=== PATIENT | male | born 1970 | race Caucasian/White ===

== ENCOUNTER 2018-02-22 13:07 | Emergency (ER) | payer BC ==
[2018-02-22 14:08] LABS: #Basophils 0.1 thou/uL (0.0-0.2); #Eosinphils 0.4 thou/uL (0.0-0.7); #Lymphocytes 1.7 thou/uL (1.20-3.40); #Monocytes 0.4 thou/uL (0.11-0.59); #Neutrophils 1.8 thou/uL (1.40-6.50); %Basophils 2.8 % (0.0-1.0); %Eosinophils 8.2 % (0.0-10.0); %Lymphocytes 38.8 % (21.0-51.0); %Monocytes 8.5 % (0.0-10.0); %Neutrophils 41.7 % (42.0-75.0); Hemoglobin 14.2 g/dL (14.0-18.0); Mean Corpuscular Hemoglobin 28.5 pg (27.0-31.0); Mean Corpuscular Volume 79.2 fL (78.0-98.0); Mean Platelet Volume 6.4 fL (7.4-10.4); Platelet Count 287 thou/uL (130-400); RBC Distribution Width 10.7 % (11.5-14.5); Red Blood Cell (RBC) Count 4.98 mill/uL (4.70-6.10); White Blood Cell (WBC) Count 4.4 thou/uL (4.8-10.8)
[2018-02-22 14:12] LABS: MDiff Complete? YES
[2018-02-22 14:26] LABS: ALT (SGPT) 20 U/L (8-55); AST (SGOT) 20 U/L (5-34); Albumin 4.7 g/dL (3.5-5.0); Alkaline Phosphatase 65 U/L (40-150); Anion Gap 17 mmol/L (10-20); BUN (Urea Nitrogen) 15 mg/dL (8.9-20.6); Bilirubin, Total 0.8 mg/dL (0.2-1.2); Calc. Creatinine Clearance 0 mL/min (70-130); Calcium 9.8 mg/dL (7.8-10.44); Carbon Dioxide 23 mmol/L (22-29); Chloride 106 mmol/L (98-107); Estimated GFR-MDRD 68; Globulin 3.4 g/dL (2.4-3.5); Glucose 109 mg/dL (70-105); Potassium 3.6 mmol/L (3.5-5.1); Protein, Total 8.1 g/dL (6.0-8.3); Sodium 142 mmol/L (136-145)
[2018-02-22 14:29] LABS: CKMB 1.1 ng/mL (0-6.6); Troponin I Less than 0.010 ng/mL (< 0.028)
[2018-02-22] MEDS ORDERED: Potassium Chloride 20 MEQ TAB ONE (14:39)
== END 2018-02-22 14:47 | disposition home or self-care (01) ==
LOC: BURERS 13:07
DX: R00.2 Palpitations (principal); K21.9 Gastro-esophageal reflux disease without esophagitis; E03.9 Hypothyroidism, unspecified; Z79.899 Other long term (current) drug therapy; Z79.82 Long term (current) use of aspirin
CPT/HCPCS: 80053; 82553; 83735; 83880; 84443; 84484; 85025; 93005

== ENCOUNTER 2020-03-08 19:38 | Emergency (ER) | payer BC ==
[~2020-03-08 19:38] MED LIST: Iopamidol 370 76% 100 ML VIAL ONE
[2020-03-08 20:00] LABS: #Basophils 0.1 thou/uL (0.0-0.2); #Eosinphils 0.5 thou/uL (0.0-0.7); #Lymphocytes 2.4 thou/uL (1.20-3.40); #Monocytes 0.6 thou/uL (0.11-0.59); #Neutrophils 2.2 thou/uL (1.40-6.50); %Eosinophils 8.8 % (0.0-10.0); %Lymphocytes 41.7 % (21.0-51.0); %Monocytes 9.4 % (0.0-10.0); %Neutrophils 38.1 % (42.0-75.0); Hemoglobin 13.1 g/dL (14.0-18.0); Mean Corpuscular HGB CONC 30.9 g/dL (32.0-36.0); Mean Corpuscular Hemoglobin 28.4 pg (27.0-31.0); Mean Corpuscular Volume 91.7 fL (78.0-98.0); Mean Platelet Volume 8.3 fL (7.4-10.4); Platelet Count 267 thou/uL (130-400); RBC Distribution Width 11.5 % (11.5-14.5); Red Blood Cell (RBC) Count 4.62 mill/uL (4.70-6.10); White Blood Cell (WBC) Count 5.8 thou/uL (4.8-10.8)
[2020-03-08 20:07] LABS: INR-International Normal Ratio 0.9; PTT 30.8 sec (22.9-36.1); Prothrombin Time 12.1 sec (12.0-14.7)
[2020-03-08 20:16] LABS: ALT (SGPT) 31 U/L (8-55); AST (SGOT) 21 U/L (5-34); Albumin 4.4 g/dL (3.5-5.0); Alkaline Phosphatase 68 U/L (40-110); Anion Gap 13 mmol/L (10-20); BUN (Urea Nitrogen) 15 mg/dL (8.9-20.6); Bilirubin, Total 0.2 mg/dL (0.2-1.2); Calc. Creatinine Clearance 0 mL/min (70-130); Calcium 9.2 mg/dL (7.8-10.44); Carbon Dioxide 26 mmol/L (22-29); Chloride 105 mmol/L (98-107); Estimated GFR-MDRD 63; Globulin 3.1 g/dL (2.4-3.5); Glucose 106 mg/dL (70-105); Potassium 3.7 mmol/L (3.5-5.1); Protein, Total 7.5 g/dL (6.0-8.3); Sodium 140 mmol/L (136-145)
--- NOTE | 2020-03-08 20:41 | CT ---
CT OF THE BRAIN WITHOUT CONTRAST: 03/08/20 Comparison is made with the prior study dated 05/04/15. There has been no adverse interval change. The ventricles are normal in size with no shift. No intrac ranial bleeding, mass or sign of acute stroke was found. An incidental finding is some mucosal thicke ramírez and maybe even a short air fluid level in the left maxillary sinus. The other sinuses and mastoi d air cells are clear. IMPRESSION: 1. No acute intracranial findings. 2. Left maxillary sinusitis. Preliminary report called to Dr. Dennis at 2001 on 03/08/20. POS: HOME
--- NOTE | 2020-03-08 20:41 | CT ---
CTA of the head with IV contrast and 3-D reformatted imaging. CTA of the neck with IV contrast and 3-D reformatted imaging. INDICATION: Left-sided weakness COMPARISON: Noncontrast CT the brain dated March 08, 2020 and MR the brain with and without contrast da bri August 14, 2015 FINDINGS: CTA OF THE HEAD WITH CONTRAST: CTA OF THE BRAIN: Right ICA: There is a dissection involving the distal right cervical ICA that completely occludes at the level of the right skull base with re-opacification of the limits the level of the petrous segment. The remaining course of the intracranial right ICA is patent. Right MCA: Patent. Right JUDI: Patent. ACOM: Patent. Left ICA: Patent. Left MCA: Patent. Left JUDI: Patent. PCOMs: The right CAN MARKER has a origin. Vertebral arteries: Patent. Basilar Artery: Patent. software engineer sales: The right CAN MARKER has a origin. Both software engineer sales are patent. Incidentals: No abnormal enhancement CTA OF THE NECK WITH CONTRAST: Right CCA: Patent. Right ICA: There is complete occlusion of the distal right ICA due to a dissection flap. The flap or iginates at approximately the C1 vertebral level and extends through the right skull base. There is reconstitution of flow within the petrous segment of the right ICA. Right Subclavian: Patent. Right Vertebral Artery: Patent. Left CCA: Patent. Left ICA: Patent. Left Subclavian: Patent. Left Vertebral Artery: Patent. Aerodigestive tract: Clear. Parotids/Submandibular/Thyroid glands: Normal. Lymph nodes: No pathologically enlarged lymph nodes. Lung Apices: Clear. Bones: No acute osseous abnormality. Incidentals: None. IMPRESSION: 1. 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 There is reconstitution of flow at the level the right petrous segment of the internal carotid artery. 2. Findings called to Dr. Rodriguez at 8:39 PM on March 08, 2020
[2020-03-08] MEDS ORDERED: Aspirin Chewable 81 MG TAB ONE (20:53)
[2020-03-08] MEDS ORDERED: Heparin 25,000 units/D5W 500 ML ONE (21:11)
== END 2020-03-08 23:03 | disposition short-term general hospital (02) ==
LOC: BURERS 19:38
DX: I77.71 Dissection of carotid artery (principal); K21.9 Gastro-esophageal reflux disease without esophagitis; E03.9 Hypothyroidism, unspecified; Z79.899 Other long term (current) drug therapy
CPT/HCPCS: 70450; 70496; 70498; 80053; 85025; 85610; 85730; 93005; 96365; 96366; J1644; Q9967

== ENCOUNTER 2020-03-20 15:37 | Emergency (ER) | payer BC ==
[2020-03-20 16:10] LABS: #Basophils 0.1 thou/uL (0.0-0.2); #Eosinphils 0.4 thou/uL (0.0-0.7); #Lymphocytes 1.9 thou/uL (1.20-3.40); #Monocytes 0.4 thou/uL (0.11-0.59); #Neutrophils 3.3 thou/uL (1.40-6.50); %Basophils 1.6 % (0.0-1.0); %Eosinophils 5.7 % (0.0-10.0); %Lymphocytes 31.2 % (21.0-51.0); %Monocytes 7.2 % (0.0-10.0); %Neutrophils 54.3 % (42.0-75.0); Hemoglobin 13.5 g/dL (14.0-18.0); Mean Corpuscular HGB CONC 31.5 g/dL (32.0-36.0); Mean Corpuscular Hemoglobin 28.4 pg (27.0-31.0); Platelet Count 327 thou/uL (130-400); RBC Distribution Width 11.2 % (11.5-14.5); Red Blood Cell (RBC) Count 4.75 mill/uL (4.70-6.10); White Blood Cell (WBC) Count 6.2 thou/uL (4.8-10.8)
[2020-03-20 16:16] LABS: INR-International Normal Ratio 1.2; Prothrombin Time 15.3 sec (12.0-14.7)
[2020-03-20 16:26] LABS: ALT (SGPT) 26 U/L (8-55); AST (SGOT) 16 U/L (5-34); Albumin 4.3 g/dL (3.5-5.0); Alkaline Phosphatase 70 U/L (40-110); Anion Gap 14 mmol/L (10-20); BUN (Urea Nitrogen) 16 mg/dL (8.9-20.6); Bilirubin, Total 0.4 mg/dL (0.2-1.2); CK (CPK) 57 U/L (30-200); Calc. Creatinine Clearance 0 mL/min (70-130); Calcium 9.3 mg/dL (7.8-10.44); Carbon Dioxide 27 mmol/L (22-29); Chloride 100 mmol/L (98-107); Estimated GFR-MDRD 71; Globulin 3.4 g/dL (2.4-3.5); Glucose 139 mg/dL (70-105); Potassium 3.9 mmol/L (3.5-5.1); Protein, Total 7.7 g/dL (6.0-8.3); Sodium 137 mmol/L (136-145)
--- NOTE | 2020-03-20 16:57 | CT ---
CT BRAIN NONCONTRAST: DATE: 03/20/2020 HISTORY: 49-year-old male with acute stroke: Left lower extremity weakness. Dr. Cash discussed the findings by telephone with Dr. Buchanan at 4:52 PM 03/20/2020 COMPARISON: 03/08/2020 FINDINGS: There is new finding of small patchy low attenuation at the genu of the right internal capsule, encro aching upon the anterior and posterior limbs, and on the globus pallidus. There has been no other interval change. No acute intra-axial or extra-axial hemorrhage. No mass effect or midline shift. Ventricles are normal in size and configuration. No extra-axial fluid collection. Calvarium is intact. IMPRESSION: Evidence for acute or subacute lacunar infarction of right internal capsule and portion of right basa l ganglia.
--- NOTE | 2020-03-20 17:42 | CT ---
EXAM: CTA Angio Head W WO Con W Perf PROVIDED CLINICAL HISTORY: Left lower extremity weakness. History of right internal carotid artery dissection. Patient has new l acunar infarction in the right internal capsule/right basal ganglia. COMPARISON: 03/08/2020 FINDINGS: The origins of the great vessels are patent. The left subclavian artery is patent. Portion of the rig ht subclavian artery is obscured by dense contrast within adjacent venous structures. Bilateral common carotid arteries are patent The left internal carotid and external carotid arteries are patent. As noted on the prior exam, there is a dissection involving the right internal carotid artery which b egins at the C1-2 level with critical narrowing and string sign involving the distal right internal carotid artery to the level of the petrous portion of the right ICA. The petrous portion of the right ICA was normal in caliber on the prior exam. However, the petrous portion of the ICA has now decreased in caliber with slight decrease in caliber of the more proximal cavernous segment of the ri ght internal carotid artery as well. 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 This pseudoaneurysm measures approximately 6 mm in diameter. The bilateral vertebral arteries are patent. There are -type origins of each posterior cerebral artery which are patent. The bilateral middle cerebral and anterior cerebral arteries are patent. Mucosal thickening in each maxillary antrum is again seen. No other interval change. IMPRESSION: 1. Short segment dissection again seen involving the distal cervical right internal carotid artery wh ich begins at the C1-2 level and extends to the petrous segment of the right internal carotid artery. A string sign with very severe narrowing is present similar to prior exam; however, there has been interval decrease in caliber of the petrous portion of the right ICA compared to prior exam. 2. 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 3. Above findings discussed with Dr. Buchanan in the emergency department on 03/20/2020 at 1731 hours.
--- NOTE | 2020-03-20 19:09 | RAD ---
PORTABLE CHEST: DATE: 03-20-2020 An AP portable film at 1719 is compared with an 04-16-15 study. FINDINGS: The heart is normal in size and the lungs are clear. No infiltrate or effusion is seen. There is no v ascular congestion or edema. IMPRESSION: No acute thoracic finding. POS: HOME
== END 2020-03-20 19:30 | disposition short-term general hospital (02) ==
LOC: BURERS 15:37
DX: I63.231 Cerebral infarction due to unspecified occlusion or stenosis of right carotid arteries (principal); R29.700 NIHSS score 0; R00.1 Bradycardia, unspecified; E03.9 Hypothyroidism, unspecified; Z79.82 Long term (current) use of aspirin; Z79.899 Other long term (current) drug therapy
CPT/HCPCS: 0042T; 70450; 70496; 70498; 71045; 80053; 82550; 84484; 85025; 85610; 93005; 96360; Q9967

== ENCOUNTER 2023-09-18 20:05 | Emergency (ER) | payer BC | END 2023-09-18 21:33 | disposition home or self-care (01) | LOC: BURERS 20:05 | DX: S90.32XA Contusion of left foot, initial encounter (principal); E03.9 Hypothyroidism, unspecified; W20.8XXA Other cause of strike by thrown, projected or falling object, initial encounter ==

== ENCOUNTER 2024-09-30 14:27 | Emergency (ER) | payer BC, OTHER ==
[2024-09-30] MEDS ORDERED: Ketorolac Tromethamine 30 MG (1 mL) VIAL ONE (15:01)
[2024-09-30] MEDS ORDERED: hydrALAZINE 20 MG/ML VIAL ONE (15:01)
[2024-09-30 15:02] LABS: #Basophils 0.1 thou/uL (0.0-0.2); #Eosinophils 0.2 thou/uL (0.0-0.7); #Lymphocytes 1.9 thou/uL (1.20-3.40); #Monocytes 0.6 thou/uL (0.11-0.59); #Neutrophils 3.2 thou/uL (1.40-6.50); %Basophils 1.7 % (0.0-1.0); %Eosinophils 3.9 % (0.0-10.0); %Lymphocytes 31.6 % (21.0-51.0); %Monocytes 9.7 % (0.0-10.0); %Neutrophils 53.1 % (42.0-75.0); Hematocrit 42.8 % (42.0-52.0); Mean Corpuscular HGB CONC 35.1 g/dL (32.0-36.0); Mean Corpuscular Volume 82.7 fl (78.0-98.0); Mean Platelet Volume 6.2 fL (7.4-10.4); Platelet Count 380 10x3/uL (130-400); RBC Distribution Width 10.2 % (11.5-14.5); Red Blood Cell (RBC) Count 5.17 mill/uL (4.70-6.10); White Blood Cell (WBC) Count 6.1 10x3/uL (4.8-10.8)
[2024-09-30 15:28] LABS: ALT (SGPT) 70 U/L (Less than 45); AST (SGOT) 34 U/L (11-34); Albumin 4.6 g/dL (3.1-4.5); Alkaline Phosphatase 78 U/L (40-110); Anion Gap 14 mmol/L (10-20); BUN (Urea Nitrogen) 14 mg/dL (8.4-25.7); Bilirubin, Total 0.6 mg/dL (0.3-1.2); Calc. Creatinine Clearance 0 mL/min (70-130); Calcium 9.7 mg/dL (7.8-10.44); Carbon Dioxide 25 mmol/L (22-29); Chloride 103 mmol/L (98-107); Estimated GFR 69; Globulin 3.6 g/dL (2.4-3.5); Glucose 97 mg/dL (70-105); Potassium 4.3 mmol/L (3.5-5.1); Protein, Total 8.2 g/dL (6.0-8.3); Sodium 138 mmol/L (136-145)
[2024-09-30 15:29] LABS: Troponin I Less than 0.010 ng/mL (< 0.028)
== END 2024-09-30 16:54 | disposition home or self-care (01) ==
LOC: BURERS 14:27
DX: I10 Essential (primary) hypertension (principal); R29.700 NIHSS score 0; Z86.73 Personal history of transient ischemic attack (TIA), and cerebral infarction without residual deficits
CPT/HCPCS: 70450; 70496; 70498; 80053; 84484; 85025; 93005; 96374; J0360; J1885; Q9967